=== PATIENT | female | born 1955 | race Caucasian/White ===

== ENCOUNTER 2021-03-28 12:58 | Inpatient (IN) | payer OTHER, MEDICARE ==
[~2021-03-28] VITALS: Ht 175.3 cm; Wt 64.0 kg
[2021-03-28 14:23] LABS: BASOPHILS ABSOLUTE AUTO 0.03 K/mm3 (0.00-0.23); BASOPHILS PERCENT AUTO 1 % (0-2); EOSINOPHILS ABSOLUTE AUTO 0.05 K/mm3 (0.00-0.68); EOSINOPHILS PERCENT AUTO 1 % (0-6); Hematocrit 38.7 % (33.0-51.0); Hemoglobin 12.8 g/dL (11.5-16.0); IMMATURE GRAN ABSOLUTE AUTO 0.01 K/mm3 (0.00-0.10); IMMATURE GRAN PERCENT AUTO 0 % (0-1); LYMPHOCYTES ABSOLUTE AUTO 0.73 K/mm3 (0.84-5.20); LYMPHOCYTES PERCENT AUTO 13 % (21-46); MONOCYTES ABSOLUTE AUTO 0.42 K/mm3 (0.16-1.47); MONOCYTES PERCENT AUTO 8 % (4-13); Mean Corpuscular HGB 29.1 pg (26.0-34.0); Mean Corpuscular HGB Conc 33.1 g/dL (31.5-36.5); Mean Corpuscular Volume 88 fL (80-100); Mean Platelet Volume 9.1 fL (9.1-12.4); NEUTROPHILS ABSOLUTE AUTO 4.26 K/mm3 (1.96-9.15); NEUTROPHILS PERCENT AUTO 78 % (41-73); Platelet Count 146 K/mm3 (150-400); RDW Coefficient Variation 13.3 % (11.7-14.2); RDW Standard Deviation 43.6 fL (35.1-46.3)
[2021-03-28 14:59] LABS: Anion Gap 3 mmol/L (6-16); Blood Urea Nitrogen 7 mg/dL (8-24); CO2, Blood 30 mmol/L (21-32); Calcium, Blood 8.6 mg/dL (8.5-10.1); Chloride, Blood 108 mmol/L (98-108); Creatinine, Blood 0.58 mg/dL (0.40-1.00); Glomerular Filtration Rate >60 (60-); Glucose, Blood 89 mg/dL (70-99); Potassium, Blood 3.6 mmol/L (3.5-5.5); Sodium, Blood 141 mmol/L (136-145)
[2021-03-28 15:20] LABS: SARS-Cov-2 (COVID-19) PCR, MMC NEGATIVE (NEGATIVE)
--- NOTE | 2021-03-28 17:33 | NUR ---
PT PREOP IN SURG ROOM. History, Chart, Medications and Allergies reviewed before start of procedure.Patient confirms NPO status and agrees with scheduled surgery. Surgical site prepped with 2% Chlorhexidine cloth wipe. Lungs clear T/O to Auscultation.
--- NOTE | 2021-03-28 17:40 | NUR ---
PT LEFT FOR OR AT THIS TIME.
[2021-03-28] MEDS ORDERED: OMEP20ER PO (17:56)
[2021-03-28] MEDS ORDERED: CYAN500 SL (17:57)
[2021-03-28] MEDS ORDERED: SUCR1 PO (17:58)
[2021-03-28] MEDS ORDERED: DULO30 PO (17:58)
[2021-03-28] MEDS ORDERED: TRAM50 PO (17:59)
[2021-03-28] MEDS ORDERED: CLON1 PO (18:00)
[2021-03-28] MEDS ORDERED: BUPRENORPHIN-N1 EAC1 SL (18:00)
--- NOTE | 2021-03-29 07:24 | NUR ---
SHIFT SUMMARY POD1 L FEMORAL NECK SCREW PLACEMENT, A/O X4, VSS, TOLERATING PO, VOIDING WELL, AMBULATES c 1 SBA, PAIN WELL MANAGED PER EMAR. NO ACUTE EVENTS THIS SHIFT. CALL LIGHT IN REACH, REPORT GIVEN TO DAY RN.
[2021-03-29] MEDS ORDERED: OXYC5 PO (12:41)
--- NOTE | 2021-03-29 14:52 | NUR ---
DISCHARGE: PACKET PRINTED AND PT EDUCATED. PT GIVEN AQUACEL DRESSING AND SCRIPT. LEFT UNIT VIA WHEELCHAIR AT ABOUT 1420 WITH KARLO NGUYEN
== END 2021-03-29 14:28 | disposition home or self-care (01) | DRG 481 ==
LOC: SURS 12:58
PROVIDERS: ADMIT Orthopaedic Surgery
PROC: 0QH734Z Insertion of Internal Fixation Device into Left Upper Femur, Percutaneous Approach (ICD-10-PCS; principal; 2021-03-28 16:00)
DX: S72.092A Other fracture of head and neck of left femur, initial encounter for closed fracture (principal); K91.2 Postsurgical malabsorption, not elsewhere classified; K31.1 Adult hypertrophic pyloric stenosis; W01.0XXA Fall on same level from slipping, tripping and stumbling without subsequent striking against object, initial encounter; R51.9 Headache, unspecified; Z20.822 Contact with and (suspected) exposure to COVID-19; G62.9 Polyneuropathy, unspecified; M48.061 Spinal stenosis, lumbar region without neurogenic claudication; Z87.11 Personal history of peptic ulcer disease; Z98.84 Bariatric surgery status; Z79.899 Other long term (current) drug therapy; Z79.891 Long term (current) use of opiate analgesic
CPT/HCPCS: 36415; 80048; 85025; 93005; 93010; 97110; 97161; A9270; C1713; C1769; J0171; J0690; J1100; J2250; J2405; J2704; J3010; J7030; J7120; U0004

== ENCOUNTER → 2021-04-07 | Outpatient (CLI) | payer MEDICARE, OTHER ==
[~2021-04-07] MED LIST: BUPRENORPHIN-N1 EAC1 SL; CLON1 PO; CYAN500 SL; DULO30 PO; OMEP20ER PO; OXYC5 PO; SUCR1 PO; TRAM50 PO
[2021-04-07 17:30] LABS: BASOPHILS ABSOLUTE AUTO 0.04 K/mm3 (0.00-0.23); BASOPHILS PERCENT AUTO 1 % (0-2); EOSINOPHILS PERCENT AUTO 0 % (0-6); Hematocrit 41.6 % (33.0-51.0); Hemoglobin 14.5 g/dL (11.5-16.0); IMMATURE GRAN ABSOLUTE AUTO 0.01 K/mm3 (0.00-0.10); IMMATURE GRAN PERCENT AUTO 0 % (0-1); LYMPHOCYTES ABSOLUTE AUTO 0.88 K/mm3 (0.84-5.20); LYMPHOCYTES PERCENT AUTO 16 % (21-46); MONOCYTES ABSOLUTE AUTO 0.42 K/mm3 (0.16-1.47); MONOCYTES PERCENT AUTO 8 % (4-13); Mean Corpuscular HGB 29.3 pg (26.0-34.0); Mean Corpuscular HGB Conc 34.9 g/dL (31.5-36.5); Mean Corpuscular Volume 84 fL (80-100); Mean Platelet Volume 8.7 fL (9.1-12.4); NEUTROPHILS ABSOLUTE AUTO 4.07 K/mm3 (1.96-9.15); NEUTROPHILS PERCENT AUTO 75 % (41-73); Platelet Count 325 K/mm3 (150-400); RDW Coefficient Variation 12.6 % (11.7-14.2); RDW Standard Deviation 38.7 fL (35.1-46.3); Red Blood Cell Count 4.95 M/mm3 (3.80-5.20); White Blood Cell Count 5.42 K/mm3 (4.00-11.30)
[2021-04-07 18:16] LABS: Alanine Aminotransfer (ALT/SGP 15 U/L (12-78); Albumin/Globulin Ratio 1.1 (0.8-1.8); Alk Phos 152 U/L (50-136); Anion Gap 9 mmol/L (6-16); Aspartate Aminotrans (AST/SGOT 10 U/L (12-37); Bilirubin, Total 2.1 mg/dL (0.1-1.0); Blood Urea Nitrogen 17 mg/dL (8-24); Bun/Creatinine Ratio 29.3 (12.0-20.0); CO2, Blood 25 mmol/L (21-32); Calcium, Blood 9.5 mg/dL (8.5-10.1); Chloride, Blood 103 mmol/L (98-108); Creatinine, Blood 0.58 mg/dL (0.40-1.00); Globulin, Blood 3.6 g/dL (2.2-4.0); Glomerular Filtration Rate >60 (60-); Glucose, Blood 126 mg/dL (70-99); Potassium, Blood 3.4 mmol/L (3.5-5.5); Sodium, Blood 137 mmol/L (136-145); Total Protein, Blood 7.6 g/dL (6.4-8.2)
[2021-04-08 12:47] LABS: Bilirubin, Direct 0.9 mg/dL (0.0-0.3); Bilirubin, Indirect 1.2 mg/dL (0.1-0.7)
== END | disposition home or self-care (01) ==
LOC: LAB SHORT 15:44 → LAB 15:44
PROVIDERS: Internal Medicine Hematology & Oncology
DX: D50.9 Iron deficiency anemia, unspecified (principal)
CPT/HCPCS: 80053; 82247; 82248; 85025

== ENCOUNTER 2021-05-24 22:06 | Inpatient (IN) | payer MEDICARE, OTHER ==
[~2021-05-24] VITALS: Ht 170.2 cm; Wt 59.0 kg
[2021-05-25 00:40] LABS: BASOPHILS ABSOLUTE AUTO 0.04 K/mm3 (0.00-0.23); BASOPHILS PERCENT AUTO 1 % (0-2); EOSINOPHILS ABSOLUTE AUTO 0.25 K/mm3 (0.00-0.68); EOSINOPHILS PERCENT AUTO 5 % (0-6); Hematocrit 27.3 % (33.0-51.0); IMMATURE GRAN ABSOLUTE AUTO 0.02 K/mm3 (0.00-0.10); IMMATURE GRAN PERCENT AUTO 0 % (0-1); LYMPHOCYTES ABSOLUTE AUTO 1.16 K/mm3 (0.84-5.20); LYMPHOCYTES PERCENT AUTO 21 % (21-46); MONOCYTES ABSOLUTE AUTO 0.44 K/mm3 (0.16-1.47); MONOCYTES PERCENT AUTO 8 % (4-13); Mean Corpuscular HGB 30.1 pg (26.0-34.0); Mean Corpuscular Volume 91 fL (80-100); NEUTROPHILS ABSOLUTE AUTO 3.51 K/mm3 (1.96-9.15); NEUTROPHILS PERCENT AUTO 65 % (41-73); RDW Coefficient Variation 13.2 % (11.7-14.2); RDW Standard Deviation 43.9 fL (35.1-46.3); Red Blood Cell Count 2.99 M/mm3 (3.80-5.20); White Blood Cell Count 5.42 K/mm3 (4.00-11.30)
[2021-05-25 00:44] LABS: Mean Platelet Volume 9.9 fL (9.1-12.4); Platelet Count 175 K/mm3 (150-400)
[2021-05-25 00:57] LABS: Alanine Aminotransfer (ALT/SGP 11 U/L (12-78); Albumin, Blood 1.8 g/dL (3.4-5.0); Albumin/Globulin Ratio 0.6 (0.8-1.8); Alk Phos 89 U/L (50-136); Anion Gap 3 mmol/L (6-16); Aspartate Aminotrans (AST/SGOT 18 U/L (12-37); Bilirubin, Total 0.6 mg/dL (0.1-1.0); Blood Urea Nitrogen 12 mg/dL (8-24); Bun/Creatinine Ratio 23.1 (12.0-20.0); CO2, Blood 30 mmol/L (21-32); Calcium, Blood 7.7 mg/dL (8.5-10.1); Chloride, Blood 106 mmol/L (98-108); Creatinine, Blood 0.52 mg/dL (0.40-1.00); Globulin, Blood 3.2 g/dL (2.2-4.0); Glomerular Filtration Rate >60 (60-); Glucose, Blood 89 mg/dL (70-99); Potassium, Blood 4.2 mmol/L (3.5-5.5); Sodium, Blood 139 mmol/L (136-145)
--- NOTE | 2021-05-25 03:00 | NUR ---
RECEIVED HAND OFF FROM ER, RN. TRANSPORTED TO ROOM VIA STRETCHER. TRANSFERED SELF WITH STANDBY ASSSIST, TOLERATED WELL. AAO X4, BYRNE, FOLLOWS ALL COMMANDS. ORIENTED TO ROOM, CALL SYSTEM, AND POC, VOICES UNDERSTANDING. RESPIRATIONS EVEN AND UNLABORED ON RA. LUNG SOUNDS CLEAR BILATERALLY. ABDOMEN TENDER WITH LAP SITES WITH INFLAMATION NOTED. PT STATES THAT IHE LEFT LATERAL SITE HAS BEEN POURING OUT FLUID. SHE ASKED THAT WE PLACED A DRESSING TO THE SITE. RIGHT AC PIV INTACT. SCD'S TO BLE. DENIES PAIN, DISCOMFORT, OR FURTHER NEEDS AT THIS TIME. SAFETY MEASURES IN PLACE. WILL CONTINUE TO MONITOR AND ADDRESS NEEDS THEY ARISE.
--- NOTE | 2021-05-25 06:25 | NUR ---
LYING ON HER RIGHT SIDE FOR COMFORT. NO CHANGES NOTED SINCE ADMISSION. IVF INFUSING AT 125ML/HR. WAS GIVEN 1MG OF ATIVAN. GIVEN WARM BLANKETS FOR COMFORT. DENIES PAIN, DISCOMFORT, OR FURTHER NEEDS AT THIS TIME. SAFETY MEASURES IN PLACE. WILL CONTINUE TO MONITOR AND ADDRESS NEEDS THEY ARISE.
[2021-05-25 13:48] LABS: SARS-Cov-2 (COVID-19) PCR, MMC NEGATIVE (NEGATIVE)
--- NOTE | 2021-05-25 14:53 | NUR ---
05/25/21 1453 Zenobia Espinosa PATIENT IS ON SCHEDULED ANTIBIOTICS.
[2021-05-25] MEDS ORDERED: SULFAMETHOXAZO1 EAC1 PO ×2 (17:31→17:32)
--- NOTE | 2021-05-25 18:03 | NUR ---
DISCHARGE INSTUCTIONS GIVEN TO PATIENT AT THIS TIME, PATIENT VERBALIZED UNDERSTANDING. IV REMOVED. NO COMPLAINTS OF PAIN VOICED. NO SIGNS OR SYMPTOMS ACUTE DISTRESS NOTED. AAOX4. DRESSING TO LLQ CHANGED AT THIS TIME. PRESCRIPTION GIVEN TO PATIENT. AWAITING HER RIDE HOME AT THIS TIME.
== END 2021-05-25 18:29 | disposition home or self-care (01) | DRG 856 ==
LOC: ER 22:06 → SURS 05-25 02:15
PROVIDERS: Student in an Organized Health Care Education/Training Program; ADMIT Surgery
PROC: 0W9F0ZZ Drainage of Abdominal Wall, Open Approach (ICD-10-PCS; principal; 2021-05-25 11:45)
DX: T81.41XA Infection following a procedure, superficial incisional surgical site, initial encounter (principal); E43 Unspecified severe protein-calorie malnutrition; L03.311 Cellulitis of abdominal wall; L02.211 Cutaneous abscess of abdominal wall; Y83.8 Other surgical procedures as the cause of abnormal reaction of the patient, or of later complication, without mention of misadventure at the time of the procedure; Z88.6 Allergy status to analgesic agent; Z87.11 Personal history of peptic ulcer disease; Z98.890 Other specified postprocedural states; Z68.20 Body mass index [BMI] 20.0-20.9, adult; Z79.899 Other long term (current) drug therapy
CPT/HCPCS: 36415; 71045; 74177; 80053; 83605; 85025; 87040; 96365; 99285-25; A9270; J0461; J1100; J2060; J2370; J2405; J2543; J2704; J3010; J3370; J7030; J7120; Q9967; U0004